=== PATIENT | male | born 1980 | race African-American/Black ===

== ENCOUNTER 2024-05-02 04:31 | Emergency (ER) | payer OTHER, SELFPAY ==
--- NOTE | ~2024-05-02 | XR_ITS ---
CLINICAL HISTORY: SHORTNESS OF BREATH 1 view chest x-ray Comparison: None Findings: The lungs are clear. Normal size heart. No acute fracture. IMPRESSION: 1. No acute findings. This document has been electronically signed by: Mariela Amin MD on 05/02/2024 06:20:23
--- NOTE | 2024-05-02 05:02 | ECG_ITS ---
Test Reason : CHEST PAIN Blood Pressure : */* mmHG Vent. Rate : 100 BPM Atrial Rate : 100 BPM P-R Int : 148 ms QRS Dur : 76 ms QT Int : 316 ms P-R-T Axes : 37 30 34 degrees QTcB Int : 407 ms Normal sinus rhythm Normal ECG When compared with ECG of 02-May-2024 05:02, No significant change was found Referred By: Edmundo Pastrana Electronically Signed By: Marques Keller
--- NOTE | 2024-05-02 06:03 | PC.NURSE ---
documentation began on downtime paperwork
[2024-05-02 06:10] LABS: IDNOW Serial# 6674DD1D; Strep A Nucleic Acid Invalid (Negative)
[2024-05-02 06:42] LABS: Influenza A PCR NEGATIVE (Negative); Influenza B PCR POSITIVE (Negative); Resp Syncy Virus RNA Qual PCR NEGATIVE (Negative); SARS COV2 PCR INHOUSE NEGATIVE (Negative)
--- NOTE | 2024-05-02 06:42 | ED_ITS ---
HPI - URI/Sore Throat General Stated Complaint: Flu like symptoms Time Seen by Provider: 05/02/24 06:38 Source: patient, RN notes reviewed, old records reviewed and science interpreter Mode of arrival: ambulatory Limitations: no limitations History of Present Illness ED Provider: Nuha Anthony PA-C HPI Narrative: 43 y/o male presenting to the ER for evaluation of several days of feeling unwell. He reports having flu like symptoms including diffuse body aches, nausea, vomiting dizziness, chest pain w/ coughing, sore throat, SOB. His symptoms have been worsening. He is on day 6 of illness today. He is taking OTC vitamins and cold medications with no relief. He reports the chest pains are diffuse and only with coughing. No chest pain at rest. No CHESTER. No fevers. No abdominal pain or diarrhea. No known sick contacts. MD elicited complaint: cough, sore throat and other (N/V, body aches) Onset (ago): day(s) Consistency: progressively worsening Severity: moderate Description of mucous: clear Able to tolerate fluids by mouth: Yes Exacerbating factors: supine positioning Relieving factors: nothing Associated symptoms: chills, myalgias, headache, nasal congestion, sore throat, cough, chest pain, shortness of breath, nausea and vomiting Treatments prior to arrival: ibuprofen Related Data Previous Rx's ?Medication ?Instructions ?Recorded benzonatate 100 mg capsule 100 mg PO TID PRN cough #30 caps 05/02/24 ondansetron 4 mg disintegrating 4 mg PO Q8H PRN nausea and 05/02/24 tablet vomiting #7 tabs Allergies Allergy/AdvReac Type Severity Reaction Status Date / Time No Known Allergies Allergy Verified 05/02/24 07:04 Review of Systems Review of Systems: Yes all other systems are reviewed and are negative [facility] [place] Social History Social History Advance Directives: No Advance Directives Information Provided: Yes Physical Exam Vital Signs: Vital Signs: temp 99.2 P 101 RR 18 BP 109/88 SpO2 96% RA Appearance: Alert. Oriented X3. No acute distress. Head: normocephalic, atraumatic. Eyes: Pupils equal, round and reactive to light. ENT: Pharynx normal. No tonsillar swelling or exudate. Moist Mucus membranes Neck: Normal inspection. Neck supple. CVS: Normal heart rate and rhythm. Pulses normal. Respiratory: No respiratory distress. Breath sounds normal. Tender chest wall anteriorly. Abdomen: Soft and nontender. +BS x4 Skin: Skin warm and dry. Normal skin color. Normal skin turgor. No rashes. Extremities: No lower extremity edema. No joint swelling. Neuro/psych: Oriented X 3. Grossly normal, nonfocal. CN II-XII intact. Normal speech and cognition. Medical Decision Making Medical Decision Making [facility] Narrative: 43 yo male presenting with 6 days of flu like symptoms. low grade temp on arrival w/ HR 101. no EKG changes to suggest ischemia or viral myocar ditis/pericarditis. his exam is reassuring. his anterior chest wall is mildly tender, most likely muscular pain from coughing. cxr is clear with no focal infiltrate or evidence of PNA. his viral swab is positive for flu B. discussed dx and supportive care w/ patient and family at the bedside. his vs remain stable. he is stable for d/c home with supportive care. Differential Diagnosis Differential Diagnoses: The differential diagnosis associated with the presentation includes strep, covid, flu, rsv, other viral syndrome, bronchitis, pneumonia, low suspicion for ACS or PE Lab Data [facility] Lab Attestation statement: I reviewed the patient's lab results. flu B positive Labs: Lab Results 05/02/24 Range/Units 05:51 Influenza Type A (PCR) NEGATIVE (Negative) Influenza Type B (PCR) POSITIVE A (Negative) RSV RNA Qual (PCR) NEGATIVE (Negative) SARS-CoV-2 RNA (RT-PCR) NEGATIVE (Negative) S. pyogenes GrpA JUDITH Invalid (Negative) Independent Interpretation I performed an independent interpretation of an: EKG and Plain X-Ray Interpretation: ekg w/ normal sinus rhythm, hr 100, normal pr interval, no st segment elevations or depressions cxr is clear without focal infiltrate or effusion, no pTX Independent Historian Clinical information obtained from an independent historian. History obtained from or confirmed by: Friend Prescription Management I considered prescription management with: Pain Medication and Antiviral Discharge Plan Discharge Clinical Impression: Influenza B Patient Disposition: Home, Self-Care Instructions: Influenza (DC) Additional Instructions: You were found to be Influenza B POSITIVE today. Your EKG, chest x-ray and oxygen levels were normal. Rest. Drink plenty of fluids. Do not go out in public while not feeling well. Take over the counter cold/flu medications as needed for your symptoms. Take Tylenol and/or Motrin as needed for fevers and body aches. Follow up with your doctor this week. If you develop new or worsening symptoms call 911 or come back to the ER for further evaluation. Prescriptions: New ondansetron 4 mg tablet,disintegrating 4 mg PO Q8H PRN (Reason: nausea and vomiting) Qty: 7 0RF benzonatate 100 mg capsule 100 mg PO TID PRN (Reason: cough) Qty: 30 0RF Stand Alone Forms: Work/School Release Print Language: Irish
[2024-05-02 07:16] VITALS: BP 132/79; PULSE 81; RESP 20; TEMP 36.8; O2SAT 97
--- NOTE | 2024-05-02 23:09 | ECG_ITS ---
Test Reason : HTN Blood Pressure : */* mmHG Vent. Rate : 62 BPM Atrial Rate : 62 BPM P-R Int : 132 ms QRS Dur : 94 ms QT Int : 408 ms P-R-T Axes : 43 50 43 degrees QTcB Int : 414 ms Normal sinus rhythm with sinus arrhythmia Normal ECG No significant changes when compared with the previous EKG of 02 may 2024 Referred By: Edmundo Pastrana Electronically Signed By: MARY BURR
== END 2024-05-02 07:18 | disposition home or self-care (01) ==
PROVIDERS: Emergency Provider Emergency Medicine
DX: J10.1 Influenza due to other identified influenza virus with other respiratory manifestations (principal); M79.10 Myalgia, unspecified site; R11.2 Nausea with vomiting, unspecified; R42 Dizziness and giddiness; R07.89 Other chest pain; R05.9 Cough, unspecified; R06.02 Shortness of breath; Z03.818 Encounter for observation for suspected exposure to other biological agents ruled out
CPT/HCPCS: 0241U; 71045; 87651; 93005; 99283

== ENCOUNTER → 2024-05-02 05:45 | Outpatient (BNV) | payer OTHER, SELFPAY | PROVIDERS: Emergency Provider Emergency Medicine; Visit Provider Radiology Diagnostic Radiology | DX: R06.02 Shortness of breath (principal) | CPT/HCPCS: 71045 ==

== ENCOUNTER → 2024-05-10 23:09 | Outpatient (BNV) | payer OTHER, SELFPAY | PROVIDERS: Emergency Provider Emergency Medicine; Visit Provider Internal Medicine | DX: I49.8 Other specified cardiac arrhythmias (principal); I10 Essential (primary) hypertension | CPT/HCPCS: 93010 ==

== ENCOUNTER 2024-12-24 08:15 | Outpatient (REF) | payer OTHER, SELFPAY ==
--- OUTSIDE RECORDS SUMMARY | 2024-12-24 08:33 | XMS_ITS | Clinical Summary ---
Author Organization [employer] Address 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 Name Role Phone Unavailable Primary Care Provider Unavailabl e Encounters Date Type Department Care Team Description 09/30/2024 Telephone [facility] [address] [place] [address] Jeffery Del Cid MD from Last 3 Months Social History Tobacco Use Types Packs/Day Years Used Date Smoking Tobacco: Never Assessed Comments Unknown Sex and Gender Information Value Date Recorded Sex Assigned at Not on file Legal Sex Unknown 09/30/2024 10:00 AM EDT Gender Identity Not on file Sexual Orientation Not on file Plan of Treatment Health Maintenance Due Date Last Done Comments CT Colonography 1979 Colonoscopy 1979 Colorectal Cancer Screening 1979 Depression Screening 1979 FIT DNA/Cologuard 1979 FIT 1979 FOBT 1979 HIV Screening 1979 Lipid Panel 1979 SDOH Screening 1979 Sigmoidoscopy 1979 Disability Screening 1979 Alcohol/Substance Use Screening 1991 Tobacco Screening 1991 Family Planning (PISQ) 10/20/1994 HPV Vaccines (1 - 3-dose series) 10/20/1994 Hepatitis C Screening 10/20/1997 DTaP/Tdap/Td Vaccines (1 - Tdap) 10/20/1998 Hepatitis B Vaccines (1 of 3 - 19+ 3-dose series) 10/20/1998 Pap Smear 10/20/2000 Cervical Cancer Screening 10/20/2009 HPV/Cotest 10/20/2009 Mammogram 2019 COVID-19 Vaccine (1 - 2023-2 5 season) 2024 Influenza Vaccine (#1) 2024 Zoster Vaccines (1 of 2) 10/20/2029 RSV Patients and Pa tients Aged 60 years or older (1 - 1-dose 75+ series) 10/20/2054 HIB Vaccines Aged Out No longer eligi ble based on patient's age to complete this topic Hepatitis A Vaccines Aged Out No long er eligible based on patient's age to complete this topic IPV Vaccines Aged Out No longer eligi ble based on patient's age to complete this topic Meningococcal B Vaccine Aged Out No l onger eligible based on patient's age to complete this topic Meningococcal Vaccine Aged Out No chepe juan manuel eligible based on patient's age to complete this topic Pneumococcal Vaccine: Pediat rics (0 to 5 Years) and At-Risk Patients (6 to 49) Years Aged Out No longer eligible b ased on patient's age to complete this topic RSV under 20 months Aged Out No longe r eligible based on patient's age to complete this topic Rotavirus Vaccines Aged Out No longer eligible based on patient's age to complete this topic [place] [address] [place] [id number]
[2024-12-24 11:39] LABS: Alanine Aminotransferase 28 U/L (0-40); Albumin Level 4.3 g/dL (3.5-5.0); Alkaline Phosphatase 105 U/L (39-117); Anion Gap 8 (12-20); Aspartate Amino Transferase 30 U/L (5-37); Blood Urea Nitrogen 7 mg/dL (9-16); Calcium 9.0 mg/dL (8.4-10.2); Carbon Dioxide 28 mmol/L (22-29); Chloride 108 mmol/L (96-108); Cholesterol 132 mg/dL (<200); Estimated Glomerular Filt Rate > 60; HDL Cholesterol 50 mg/dL (>40); Potassium 4.4 mmol/L (3.3-5.1); Sodium 140 mmol/L (135-145); Total Protein 7.1 g/dL (6.5-8.0); Triglycerides 39 mg/dL (<150)
== END 2024-12-24 08:16 | disposition home or self-care (01) ==
LOC: HO.10HDL 08:15
PROVIDERS: Visit Provider Internal Medicine
DX: Z00.00 Encounter for general adult medical examination without abnormal findings (principal); I10 Essential (primary) hypertension; N20.0 Calculus of kidney; E78.00 Pure hypercholesterolemia, unspecified
CPT/HCPCS: 36415; 80053; 80061

== ENCOUNTER 2025-03-10 16:15 | Outpatient (REF) | payer OTHER, SELFPAY ==
--- NOTE | ~2025-03-10 | US_ITS ---
EXAMINATION: US SCROTUM HISTORY: TESTICULAR PAIN. COMPARISON: There are no prior studies available for comparison. FINDINGS: Real-time grayscale ultrasound imaging of the scrotum was performed. RIGHT TESTICLE: The right testis measures 4.2 x 1.9 x 3.2 cm and demonstrates normal homogeneous echotexture. No masses are seen. The right testis demonstrates normal color Doppler flow. RIGHT EPIDIDYMIS: Normal in size, shape, and vascularity. LEFT TESTICLE: The left testis measures 3.4 x 1.6 x 2.5 cm and demonstrates normal homogeneous echotexture. No masses are seen. The left testis demonstrates normal color Doppler flow. LEFT EPIDIDYMIS: Normal in size, shape, and vascularity. There is an epididymal head cyst measuring 2 x 4 x 3 mm. VARICOCELE: None. HYDROCELE: There is a small septated right hydrocele. OTHER COMMENTS: None. US/US scrotum IMPRESSION: Small septated right hydrocele. 2 x 4 x 3 mm left epididymal head cyst. Otherwise unremarkable scrotal ultrasound. Electronically signed by: Wyatt Burns MD 03/11/2025 07:09 AM [facility]
--- OUTSIDE RECORDS SUMMARY | 2025-03-10 22:31 | XMS_ITS | Clinical Summary ---
Author Organization [employer] Address [address] [place] [address] Care Team Providers Care Security Alarm Technician Name Role Phone Unavailable Primary Care Provider Unavailabl e Social History Tobacco Use Types Packs/Day Years [...] 10/20/2009 Mammogram 2019 COVID-19 Vaccine (1 - 2024-2 6 season) 2024 Influenza Vaccine (#1) 2024 Zoster [...] patient's age to complete this topic Insurance [place]
== END 2025-03-10 16:16 | disposition home or self-care (01) ==
LOC: HO.US 16:15
PROVIDERS: PCP Internal Medicine; Visit Provider Internal Medicine
DX: N50.811 Right testicular pain (principal)
CPT/HCPCS: 76870

== ENCOUNTER → 2025-03-10 16:28 | Outpatient (BNV) | payer OTHER, SELFPAY | PROVIDERS: PCP Internal Medicine; Visit Provider Radiology Diagnostic Radiology | DX: N50.3 Cyst of epididymis (principal); N43.2 Other hydrocele | CPT/HCPCS: 76870 ==